=== PATIENT | female | born 1955 | race Caucasian/White ===

== ENCOUNTER 2018-09-12 12:37 | Outpatient (CLI) | payer BC | END 2018-09-12 23:59 | disposition home or self-care (01) | LOC: CARD DIAG 12:37 | PROVIDERS: ATTEND Internal Medicine | DX: I08.8 Other rheumatic multiple valve diseases (principal); F17.200 Nicotine dependence, unspecified, uncomplicated; C50.111 Malignant neoplasm of central portion of right female breast | CPT/HCPCS: 93306 ==